=== PATIENT | male | born 1965 | race Caucasian/White ===

== ENCOUNTER 2016-12-01 20:03 | Emergency (ER) | payer BC, OTHER ==
[2016-12-01 20:28] VITALS: RESP 18
--- NOTE | 2016-12-01 20:57 | XR ---
EXAMINATION TYPE: XR shoulder complete LT DATE OF EXAM: 12/01/2016 8:48 PM COMPARISON: NONE HISTORY: Shoulder pain TECHNIQUE: 3 views FINDINGS: I see no fracture nor dislocation. Joint spaces are normal. AC joint is intact. IMPRESSION: Negative left shoulder exam. Mild spurring noted at the greater tuberosity.
--- NOTE | 2016-12-01 21:09 | ED ---
Upper Extremity HPI - General Chief Complaint: Extremity Injury, Upper Stated Complaint: slip & fall-[facility] Time Seen by Provider: 12/01/16 20:42 Source: patient, RN notes reviewed Mode of arrival: ambulatory Limitations: no limitations - History of Present Illness Initial Comments: This a 51-year-old male present emergency department with chief complaint of slip and fall. Patient states that work there was of chemical spill and states that some people wiped her feet on a mop in which the family mom the ground with causing the for to be very slippery. Patient states that he slipped and fell directly onto his left shoulder but also injured his right knee. Patient denies any head injury no LOC. Patient states that he is concerned that his left shoulder maybe dislocated. Patient states he felt a pop in her it. Patient has increased pain with range of motion of the left shoulder. Patient denies any paresthesias. Denies any neck or back pains this time. - Related Data Home Medications Medication Instructions Recorded Confirmed Naproxen Sodium [Aleve] 220 mg PO BID PRN 12/01/16 12/01/16 Ranitidine HCl 150 mg PO DAILY 12/01/16 12/01/16 Previous Rx's Medication Instructions Recorded Ibuprofen [Motrin] 800 mg PO Q6HR PRN #30 tab 12/01/16 Allergies Allergy/AdvReac Type Severity Reaction Status Date / Time indomethacin Allergy Rash/Hives Verified 12/01/16 20:45 carbidopa [From Sinemet] AdvReac Confusion Verified 12/01/16 20:45 levodopa [From Sinemet] AdvReac Confusion Verified 12/01/16 20:45 Review of Systems ROS Statement: Those systems with pertinent positive or pertinent negative responses have been documented in the HPI. ROS Other: All systems not noted in ROS Statement are negative. Past Medical History Past Medical History: No Reported History Additional Past Medical History / Comment(s): closed head injury. History of Any Multi-Drug Resistant Organisms: None Reported Additional Past Surgical History / Comment(s): left hip reduction, left femur reduction, repair of left knee fracture. brokern left foot. right knee arthroscopy. Past Psychological History: No Psychological Hx Reported Smoking Status: Former smoker Past Alcohol Use History: None Reported Past Drug Use History: None Reported General Exam Limitations: no limitations General appearance: alert, in no apparent distress Head exam: Present: atraumatic, normocephalic, normal inspection Neck exam: Present: normal inspection, full ROM. Absent: tenderness, lymphadenopathy, thyromegaly Respiratory exam: Present: normal lung sounds bilaterally. Absent: respiratory distress, wheezes, rales, rhonchi, stridor Cardiovascular Exam: Present: regular rate, normal rhythm, normal heart sounds. Absent: systolic murmur, diastolic murmur, rubs, gallop, clicks Extremities exam: Present: other (Left shoulder there is tenderness palpation there is no ac tenderness no clavicle tenderness patient has increased pain with range of motion of his left shoulder. Radial pulses are equal bilaterally , right knee full range of motion there is tenderness over the fibular head with no obvious deformity no ecchymosis patient has no tenderness above or below the right knee) Back exam: Present: full ROM. Absent: tenderness, paraspinal tenderness, vertebral tenderness Neurological exam: Present: alert, oriented X3, CN II-XII intact Skin exam: Present: warm, dry, intact, normal color. Absent: rash Course Vital Signs 12/01/16 20:22 Temperature 98.3 F Pulse Rate 69 Respiratory 18 Rate Blood Pressure 144/93 O2 Sat by Pulse 96 Oximetry Medical Decision Making - Medical Decision Making 51-year-old male presented for fall. There is no acute fracture or dislocation of his shoulder. Patient x-ray shows no acute fracture or dislocation. Patient be discharged at this time and follow-up with workman's comp. Disposition Clinical Impression: Injury of left shoulder, Right knee pain, Fall from slipping Disposition: HOME SELF-CARE Condition: Stable Instructions: Shoulder Pain (ED) Additional Instructions: Please return to the Emergency Department if symptoms worsen or any other concerns. Prescriptions: Ibuprofen [Motrin] 800 mg PO Q6HR PRN #30 tab PRN Reason: Pain Referrals: Jamie Fabian MD [Primary Care Provider] - 1-2 days Time of Disposition: 21:16
--- NOTE | 2016-12-01 21:23 | XR ---
EXAMINATION TYPE: XR knee complete RT DATE OF EXAM: 12/01/2016 9:08 PM COMPARISON: NONE HISTORY: Knee pain TECHNIQUE: 3 views FINDINGS: I see no fracture nor dislocation. Joint spaces are normal. There is no sign of any joint e ffusion. IMPRESSION: Negative right knee exam.
[2016-12-01 21:33] VITALS: BP 140/84; PULSE 77; TEMP 98.2
== END 2016-12-01 21:33 | disposition home or self-care (01) ==
LOC: EC 20:03
DX: S49.92XA Unspecified injury of left shoulder and upper arm, initial encounter (principal); M25.561 Pain in right knee; Z87.891 Personal history of nicotine dependence; Z79.899 Other long term (current) drug therapy; Z88.8 Allergy status to other drugs, medicaments and biological substances; W01.0XXA Fall on same level from slipping, tripping and stumbling without subsequent striking against object, initial encounter; Y92.69 Other specified industrial and construction area as the place of occurrence of the external cause; Y99.0 Civilian activity done for income or pay
CPT/HCPCS: 99283